=== PATIENT | male | born 1970 | race Caucasian/White ===

== ENCOUNTER 2022-01-16 20:24 | Observation (INO) | payer MEDICAID, SELFPAY ==
--- NOTE | 2022-01-16 20:17 | ECG_ITS ---
APPROVED REPORT Exam: Resting ECG HR:81 bpm ECG Measurements Heart Rate 81 AXES DC 186 P 66 QRSd 85 QRS 64 QT 372 T 54 QTc 409 Conclusion SINUS RHYTHM NORMAL ECG UNCONFIRMED REPORT Electronically signed by : Patrice Izquierdo MD 01/17/2022 21:09:01
[2022-01-16 20:24] VITALS: BP 175/89; PULSE 84; RESP 20; TEMP 36.7; O2SAT 97; BMI 43.5
--- NOTE | 2022-01-16 20:58 | XR_ITS ---
PROCEDURE INFORMATION: Exam: XR Chest Exam date and time: 01/16/2022 8:59 PM Age: 51 years old Clinical indication: Sternal or substernal pain; Additional info: Chest TECHNIQUE: Imaging protocol: Radiologic exam of the chest. Views: 2 views. COMPARISON: No relevant prior studies available. FINDINGS: Lungs: Unremarkable. No consolidation. Pleural spaces: Unremarkable. No pleural effusion. No pneumothorax. Heart/Mediastinum: Unremarkable. No cardiomegaly. Bones/joints: Unremarkable. Organs: Cholecystectomy clips. IMPRESSION: No acute findings.
[2022-01-16 21:03] LABS: Coronavirus 19, PCR Not Detected (NotDetected); Influenza A, PCR Not Detected (NotDetected); Influenza B, PCR Not Detected (NotDetected)
--- NOTE | 2022-01-16 21:12 | HMH.EDCP ---
Discharge Plan Disposition Chief Complaint: Chest Pain Clinical Impressions Clinical Impression: Unstable angina pectoris, Diabetes mellitus, insulin dependent (IDDM), controlled, Obesity Discharge ED Provider: Rishi Alvarado Chest Pain HPI General Chief Complaint: Chest Pain Stated Complaint: chest pain Time Seen by Provider: 01/16/22 21:12 Mode of Arrival: Family Vehicle Source of Information: Patient, Spouse and Medical Record Limitations: No Limitations Description of Symptoms (Recalled from ER Triage Doc. by RN): Pt c/o mid-sternal chest pain that began 3 days ago (01/13). He states he also has pain in bilat jaw. And states when the pain gets shapr is moves inbetween my shoulder blades. . Denies any known injury. He does report SOA and dyspnea occasional since I have had covid 2 years ago . Pt takes daily ASA 81mg, but denies taking any other medicaiton to aid in relief. Pt has had 1 heart cath prev, no stents placed. History of Present Illness HPI narrative: progressive ant chest pain with rad to jaw over the last few days - had cath 3 yrs ago with no stents but had been doing ok till about 1 week ago - has iddm - has been compliant with meds - no other c/o MD complaint: chest pain indicative of cardiac Onset (ago): day(s) Duration: intermittent Activity at onset: during rest Pain location: left chest Severity: moderate Quality: aching Pain radiation: jaw/teeth Risk Factors for CAD: Family Hx of CAD and Diabetes Treatments prior to or on arrival for Cardiac Chest Pain: none WAQAS Score for Non-Stemi Age of Patient: 50-59 years old Heart Rate: 70-89 bpm Systolic Blood Pressure: 120-139 mmhg Serum Creatinine: 0.80-1.19 mg/dl CHF Killip Class: I-No CHF Other Risk Factors: None Non-Stemi Risk Score: 91 Related Data Prior Cardiac Testing/Procedures: Cardiac Angiogram Home Medications Medication Instructions Recorded Confirmed aspirin 81 mg tablet,delayed 81 mg PO DAILY heart health 01/16/22 01/16/22 release citalopram 20 mg tablet 20 mg PO DAILY Depression 01/16/22 01/16/22 ibuprofen 800 mg tablet 800 mg PO BID Pain 01/16/22 01/16/22 insulin lispro 200 unit/mL (3 mL) See Rx Instructions .Route 01/16/22 01/16/22 subcutaneous pen (Humalog KwikPen .COMPLEX via insulin pump U-200 Insulin) lisinopril 20 1 tab PO BID High blood pressure 01/16/22 01/16/22 mg-hydrochlorothiazide 25 mg tablet lorazepam 1 mg tablet 1 mg PO BID Anxiety 01/16/22 01/16/22 omeprazole 40 mg capsule,delayed 40 mg PO DAILY GERD 01/16/22 01/16/22 release tamsulosin 0.4 mg capsule 0.4 mg PO DAILY bph 01/16/22 01/16/22 Allergies Allergy/AdvReac Type Severity Reaction Status Date / Time Calcium Channel Blocking Allergy Verified 01/16/22 20:56 Agents-Dih Penicillins Allergy Verified 01/16/22 20:56 Sulfa (Sulfonamide Allergy Verified 01/16/22 20:56 Antibiotics) PFSH PFS Social History Smoking Status: Never smoker alcohol intake: never current occupational status: employed Travel in the last 8 weeks: None ROS Obtained: Yes All systems reviewed & no additional complaints except as documented Constitutional Constitutional: Denies fever(s) and Denies headache(s) Eyes Eyes: Denies diplopia ENT Ears, Nose, Mouth, and Throat: Denies dizziness and Denies headache(s) Cardiovascular Cardiovascular: Reports as per HPI, Reports chest pain at rest and Reports radiating jaw, neck or arm pain Respiratory Respiratory: Denies shortness of breath Gastrointestinal Gastrointestingal: Denies dyspepsia Musculoskeletal Musculoskeletal: Denies deformity Integumentary/Breasts Skin/Breast: Denies jaundice Neurologic Neurologic: Denies dizziness and Denies headache(s) Physical Exam General General appearance: alert and obese Head Head exam: normocephalic Eye Eye exam: Present PERRL and EOMI ENT ENT exam: Present mucous membranes moist Neck Neck exam: Present full ROM and trachea midline Respiratory Respiratory
[2022-01-16 21:19] LABS: Chloride 96 mmol/L (98-107); Potassium 3.3 mmoL/L (3.5-5.1); Sodium 137 mmol/L (136-145)
[2022-01-16 21:22] LABS: Anion Gap 14.3 mEq/L (5-15); Blood Urea Nitrogen 21 mg/dl (9-20); Carbon Dioxide 30 mmol/L (22.0-30.0); Creatinine Clearance Estimated 105 mL/min (50-200); Estimated Glomerular Filt Rate 89 ml/min (>60); GFR (African American) 107 ML/MIN (>60)
[2022-01-16 21:23] LABS: Calcium 8.6 mg/dl (8.4-10.2); Glucose 182 mg/dl (74-100)
[2022-01-16 21:32] LABS: Basophils # 0.1 K/mm3 (0-0.2); Basophils % 1.2 % (0.1-2.0); Eosinophils # 0.2 K/mm3 (0.0-0.4); Hematocrit 46.2 % (42.0-52.0); Hemoglobin 15.5 g/dL (14.1-18.0); Lymphocytes % 34.9 % (10-50); Mean Corpuscular HGB Conc 33.5 g/dL (31.8-35.4); Mean Corpuscular Hemoglobin 29.9 pg (27.0-31.2); Mean Corpuscular Volume 89.3 fl (80-94); Mean Platelet Volume 8.5 fl (7.4-10.4); Monocytes # 0.7 K/mm3 (0.1-1.0); Monocytes % 7.7 % (1.7-9.3); Neutrophils # 4.6 K/mm3 (1.8-7.8); Neutrophils % 54.2 % (37.0-80.0); Platelet Count 254 K/mm3 (142-424); Red Blood Count 5.18 M/mm3 (4.60-6.20); White Blood Count 8.6 K/mm3 (4.8-10.8)
[2022-01-16 21:36] LABS: NT Pro Brain Natriuretic Pep. 27.2 pg/mL (0-125)
[2022-01-16 21:40] LABS: Troponin I < 0.01 ng/ml (0.00-0.034)
--- NOTE | 2022-01-16 21:58 | PC.NURSE ---
PATIENT ADMITTED TO [facility] [place] TO SERVICE OF DR. BREWER WITH DX OF CHEST PAIN.
[2022-01-16 22:28] VITALS: BMI 42.3
[2022-01-17] VITALS (21 sets, daily range): BP systolic 121–160; BP diastolic 67–88; PULSE 68–93; RESP 16–20; TEMP 36.6–37.1; O2SAT 91–99
--- NOTE | 2022-01-17 | IR_ITS ---
APPROVED REPORT Patient Location: Inpatient Frame Nailer: TONY Thompson RT (R) PROCEDURES Left heart catheterization Left ventriculogram Selective coronary angiogram INDICATION Unstable angina, Numerous risk factors for coronary disease Informed consent was obtained prior to the procedure. COMPLICATIONS None Estimated Blood Loss: Less than 10 mls TECHNIQUE One percent lidocaine used to anesthetize the right anterior aspect of the wrist. The right radial artery was accessed via the Seldinger technique. A 6 [place] sheath was placed in the right radial artery. 2.5 mg of verapamil, 800 mcg of nitroglycerin, 1mg Lidocaine and 5000 U Heparin were given through the arterial sheath. The papa catheter was also used to perform left heart catheterization, left ventriculogram and selective coronary angiogram. At the end of the procedure the sheath was removed good hemostasis was achieved using Traclet band, patient was transferred to the postop holding area in stable condition. ANGIOGRAPHIC RESULTS The left main artery Normal The left anterior descending artery Normal The circumflex artery Normal The right coronary artery Dominant normal The SANDOVAL ventriculogram reveals Preserved 60% The left ventricular end-diastolic pressure 10 to 15 mmHg IMPRESSION Normal coronary arteries Preserved ejection fraction Borderline normal LVEDP Resting tachycardia PLAN 1. Recommend CT PA gram to evaluate for possible pulmonary embolism 2. Check thyroid panel 3. Sleep study 4. Work-up tachycardia Electronically signed by : Jonathan Palafox MD 01/17/2022 12:55:09
--- NOTE | 2022-01-17 00:27 | PC.NURSE ---
PT ARRIVED TO FLOOR VIA WHEELCHAIR AT THIS TIME
--- NOTE | 2022-01-17 01:23 | PC.NURSE ---
Assumed care of this patient at this time. Report received from Remington Christopher RN
--- NOTE | 2022-01-17 05:04 | PC.NURSE ---
Patient has slept most of the shift since this RN assumed care. No c/o chest pain a this time. Remains NSR on telemetry. Pt independent. No needs voiced at this time. No acute distress noted, will continue to monitor.
--- NOTE | 2022-01-17 07:14 | EXP.PHA.VTE ---
[facility] Pharmacy VTE Monitoring Patient Demographics Admission date: 01/17/22 Report Date: 01/17/22 Time: 07:15 Patient Allergies Calcium Channel Blocking Agents-Dih Allergy (Verified 01/16/22 20:56) Penicillins Allergy (Verified 01/16/22 20:56) Sulfa (Sulfonamide Antibiotics) Allergy (Verified 01/16/22 20:56) Height: 1.83 m Weight: 141.776 kg Current Active Problems (Updated 01/17/22 @ 00:36 by Michell Christopher RN) Unstable angina pectoris (Acute) Diabetes mellitus, insulin dependent (IDDM), controlled (Acute) Obesity (Acute) VTE Risk Labs: VTE Related Lab Results Hgb 15.5 g/dL (14.1-18.0) 01/16/22 20:25 Hct 46.2 % (42.0-52.0) 01/16/22 20:25 Plt Count 254 K/mm3 (142-424) 01/16/22 20:25 BUN 21 mg/dl (9-20) H 01/16/22 20:25 Creatinine 0.90 mg/dl (0.66-1.25) 01/16/22 20:25 Estimated Creat Clear 105 mL/min (50-200) 01/16/22 20:25 Clinical Trial Participant: No Prophylaxis VTE Prophylaxis Ordered?: Yes Types of VTE Prophylaxis: TEDS Knee High
--- NOTE | 2022-01-17 07:32 | HMH.PHAINT1 ---
Pharmacy Intervention Comments: VERIFIED HOME MEDICATION LIST USING LIST FROM OUTPATIENT PHARMACY
[2022-01-17 09:09] LABS: Basophils # 0.1 K/mm3 (0-0.2); Basophils % 0.7 % (0.1-2.0); Eosinophils # 0.1 K/mm3 (0.0-0.4); Eosinophils % 1.3 % (0.1-12.0); Hemoglobin 15.1 g/dL (14.1-18.0); Lymphocytes # 1.7 K/mm3 (0.7-4.5); Lymphocytes % 19.6 % (10-50); Mean Corpuscular HGB Conc 33.6 g/dL (31.8-35.4); Mean Corpuscular Hemoglobin 29.8 pg (27.0-31.2); Mean Corpuscular Volume 88.5 fl (80-94); Mean Platelet Volume 7.8 fl (7.4-10.4); Monocytes # 0.5 K/mm3 (0.1-1.0); Monocytes % 5.3 % (1.7-9.3); Neutrophils # 6.3 K/mm3 (1.8-7.8); Neutrophils % 73.1 % (37.0-80.0); Platelet Count 244 K/mm3 (142-424); Red Blood Count 5.08 M/mm3 (4.60-6.20); Red Cell Distribution Width 12.9 % (11.5-17.5); White Blood Count 8.7 K/mm3 (4.8-10.8)
[2022-01-17 09:31] LABS: Chloride 99 mmol/L (98-107); Potassium 3.7 mmoL/L (3.5-5.1); Sodium 138 mmol/L (136-145)
[2022-01-17 09:34] LABS: Anion Gap 14.7 mEq/L (5-15); Blood Urea Nitrogen 17 mg/dl (9-20); Calcium 8.5 mg/dl (8.4-10.2); Carbon Dioxide 28 mmol/L (22.0-30.0); Cholesterol 161 mg/dl (140-200); Creatinine Clearance Estimated 119 mL/min (50-200); Estimated Glomerular Filt Rate 102 ml/min (>60); GFR (African American) 123 ML/MIN (>60); Glucose 104 mg/dl (74-100); Triglycerides 116 mg/dl (30-150); VLDL Cholesterol 23 mg/dL (0-40)
[2022-01-17 09:35] LABS: Chol/HDL Ratio 5.4 (1-3.5); HDL Cholesterol 30 mg/dl (40-60); Magnesium 1.8 mg/dl (1.6-2.3)
--- NOTE | 2022-01-17 09:35 | EXP.HP ---
History of Present Illness *Admission Date: 01/17/22 *Reason for visit:: Chest Pain *History of present illness: 51-year-old male patient into [facility] emergency department with progressive ant chest pain with rad to jaw over the last few days - had cath 3 yrs ago with no stents but had been doing ok till about 1 week ago - has iddm - has been compliant with meds - no other c/o PFSH PFSH Medical History (Updated 01/17/22 @ 10:07 by Dinorah Conn APRN) Diabetes mellitus, type 2 History of chest pain History of COVID-19 Hyperlipidemia Hypertension Sleep apnea Surgical History (Updated 01/17/22 @ 00:37 by Michell Christopher RN) History of cholecystectomy Family History (Updated 01/17/22 @ 00:37 by Michell Christopher RN) Other Colon cancer Family history of cancer Social History (Updated 01/17/22 @ 00:35 by Michell Christopher RN) Smoking Status: Never smoker alcohol intake: never current occupational status: employed Travel in the last 8 weeks: None Review of Systems Constitutional Constitutional: Reports system reviewed and no additional complaints, except as documented, Denies body ache(s) and Denies headache(s) Eyes Eyes: Reports system reviewed and no additional complaints, except as documented, Denies blurry vision and Denies loss of peripheral vision ENT Ears, Nose, Mouth, and Throat: Reports system reviewed and no additional complaints, except as documented, Denies dizziness, Denies headache(s) and Denies throat swelling *Cardiovascular Cardiovascular: Reports chest pain, Reports chest pain at rest, Reports chest pain with activity, Reports dyspnea and Reports dyspnea on exertion *Respiratory Respiratory: Reports dyspnea and Reports dyspnea on exertion *Gastrointestinal Gastrointestinal: Reports system reviewed and no additional complaints, except as documented, Denies abdominal pain and Denies change in bowel habits *Genitourinary Genitourinary: Reports system reviewed and no additional complaints, except as documented *Musculoskeletal Musculoskeletal: Reports system reviewed and no additional complaints, except as documented, Denies back pain and Denies joint swelling Integumentary/Breasts Skin/Breast: Reports system reviewed and no additional complaints, except as documented, Denies change in pigmentation and Denies dry skin *Neurologic Neurologic: Reports system reviewed and no additional complaints, except as documented, Denies behavioral changes, Denies dizziness and Denies headache(s) Psychiatric Psychiatric: Reports system reviewed and no additional complaints, except as documented, Denies anxiety and Denies behavioral changes Endocrine Endocrine: Reports system reviewed and no additional complaints, except as documented, Denies cold intolerance and Denies heat intolerance Hematologic/Lymphatic Hematologic/Lymphatic: Reports system reviewed and no additional complaints, except as documented, Denies easy bleeding and Denies easy bruising Allergic/Immunologic Allergic/Immunologic: Reports system reviewed and no additional complaints, except as documented, Denies GI upset with certain foods and Denies throat swelling Meds Home Medications and Allergies Home Medications Medication Instructions Recorded Confirmed Type aspirin 81 mg tablet,delayed 81 mg PO DAILY heart health 01/16/22 01/16/22 History release citalopram 20 mg tablet 20 mg PO DAILY Depression 01/16/22 01/16/22 History ibuprofen 800 mg tablet 800 mg PO BID Pain 01/16/22 01/16/22 History insulin lispro 200 unit/mL (3 mL) See Rx Instructions .Route 01/16/22 01/16/22 History subcutaneous pen (Humalog KwikPen .COMPLEX via insulin pump U-200 Insulin) lisinopril 20 1 tab PO BID High blood pressure 01/16/22 01/17/22 History mg-hydrochlorothiazide 25 mg tablet lorazepam 1 mg tablet 1 mg PO TIDP PRN Anxiety 01/16/22 01/17/22 History omeprazole 40 mg capsule,delayed 40 mg PO DAILY acid reflux 01/16/2212/29
[2022-01-17 09:46] LABS: Direct LDL Cholesterol 90.53 mg/dL (100-129)
--- NOTE | 2022-01-17 09:56 | EXP.CARD.CON ---
History of Present Illness History of Present Illness Consult date: 01/17/22 Requesting physician: Rishi Alvarado Consult reason: chest pain Chief complaint: chest pain Additional Medical History:: Past medical hx: Clean heart cath [address] Melendez per patient IDDM obesity HTN HLD History of present illness: 51 year old white male with above past medical hx presents to ED last night with complaint of ongoing episodes of midsternal chest pain, radiating to jaw and back during exertion x 3-4 days. Patient reports symptoms start with activity and usually resolve with rest. Reports associated soa with episodes. Initial trop was negative. EKG nsr no ischemic changes. BP initially elevated at 175/85. Patient is concerned because of family hx and wants a heart cath. admitted for observation and cardiac evaluation. [facility] Medical History (Updated 01/17/22 @ 10:07 by Dinorah Conn APRN) Diabetes mellitus, type 2 History of chest pain History of COVID-19 Hyperlipidemia Hypertension Sleep apnea Surgical History (Updated 01/17/22 @ 00:37 by Michell Christopher RN) History of cholecystectomy Family History (Updated 01/17/22 @ 00:37 by Michell Christopher RN) Other Colon cancer Family history of cancer Social History (Updated 01/17/22 @ 00:35 by Michell Christopher RN) Smoking Status: Never smoker alcohol intake: never current occupational status: employed Travel in the last 8 weeks: None Review of Systems Review of Systems Review of systems:: pertinent systems reviewed and negative unless documented below Constitutional Constitutional: Denies headache(s) ENT Ears, Nose, Mouth, and Throat: Denies dizziness and Denies headache(s) *Cardiovascular Cardiovascular: Reports chest pain and Reports dyspnea *Respiratory Respiratory: Reports dyspnea *Gastrointestinal Gastrointestinal: Reports system reviewed and no additional complaints, except as documented *Neurologic Neurologic: Denies confusion, Denies dizziness and Denies headache(s) Psychiatric Psychiatric: Reports system reviewed and no additional complaints, except as documented and Denies confusion Exam Data for Last 24 hours Vital signs and Labs for Last 24 Hours: Temp Pulse Resp BP Pulse Ox 98.2 F 81 16 150/84 H 96 01/17/22 08:00 01/17/22 08:00 01/17/22 08:00 01/17/22 08:00 01/17/22 08:00 Laboratory Results - last 24 hr 01/16/22 20:25: WBC 8.6, RBC 5.18, Hgb 15.5, Hct 46.2, MCV 89.3, MCH 29.9, MCHC 33.5, RDW 13.0, Plt Count 254, MPV 8.5, Neut % (Auto) 54.2, Lymph % (Auto) 34.9, [place] % (Auto) 7.7, Eos % (Auto) 2.0, Baso % (Auto) 1.2, Neut # (Auto) 4.6, Lymph # (Auto) 3.0, [place] # (Auto) 0.7, Eos # (Auto) 0.2, Baso # (Auto) 0.1 01/16/22 20:25: Sodium 137, Potassium 3.3 L, Chloride 96 L, Carbon Dioxide 30, Anion Gap 14.3, BUN 21 H, Creatinine 0.90, Estimated Creat Clear 105, Estimated GFR 89, Est GFR ( Amer) 107, Glucose 182 H, Calcium 8.6, Troponin I < 0.01, NT-Pro-B Natriuret Pep 27.2 01/16/22 20:25: SARS-CoV-2 (PCR) Not detected, Influenza A Untype (PCR) Not detected, Influenza Type B (PCR) Not detected 01/17/22 08:52: WBC 8.7, RBC 5.08, Hgb 15.1, Hct 45.0, MCV 88.5, MCH 29.8, MCHC 33.6, RDW 12.9, Plt Count 244, MPV 7.8, Neut % (Auto) 73.1, Lymph % (Auto) 19.6, [place] % (Auto) 5.3, Eos % (Auto) 1.3, Baso % (Auto) 0.7, Neut # (Auto) 6.3, Lymph # (Auto) 1.7, [place] # (Auto) 0.5, Eos # (Auto) 0.1, Baso # (Auto) 0.1 01/17/22 08:52: Sodium 138, Potassium 3.7, Chloride 99, Carbon Dioxide 28, Anion Gap 14.7, BUN 17, Creatinine 0.80, Estimated Creat Clear 119, Estimated GFR 102, Est GFR ( Amer) 123, Glucose 104 H D, Calcium 8.5, Magnesium 1.8, Triglycerides 116, Cholesterol 161, LDL Cholesterol Direct 90.53 L, VLDL Cholesterol 23, HDL Cholesterol 30 L, Cholesterol/HDL Ratio 5.4 H I & O for Last 24 hours: Intake & Output 01/14/22 01/15/22 01/16/22 01/17/22 23:59 23:59 23:59 23:59 Intake Total 604 / 604 Output Tot
[2022-01-17 11:12] LABS: POC Glucose,Bedside 127 (70-110)
--- NOTE | 2022-01-17 13:12 | PC.NURSE ---
ROUNDED ON PATIENT. PATIENT UP SITTING ON SIDE OF BED, HAD BEEN WALKING IN ROOM INDEPENDENTLY WITHOUT DIFFICULTY NO COMPLAINTS AT THIS TIME BESIDES BEING HUNGRY. PATIENT IS NPO AND WAITING FOR HEART CATH, RELAYED WE WOULD GET HIM FOOD ON RETURN TO FLOOR. NO SPECIFIC QUESTIONS OR CONCERNS. SOME EDUCATION DONE ON WHAT TO EXPECT BEFORE AND AFTER. DIRECT MAIL MANAGER ENTERED ROOM DURING THIS TIME TO TAKE PATIENT DOWNSTAIRS. FAMILY LEFT WITH THEM.
--- NOTE | 2022-01-17 13:30 | CT_ITS ---
FINAL REPORT TECHNIQUE: Thin section axial CT images were obtained from the lung apices to the upper abdomen. IV contrast was administered. MIP 3-D reformats were obtained. This study was performed with techniques to keep radiation doses as low as reasonably achievable (ALARA). Individualized dose reduction techniques using automated exposure control or adjustment of mA and/or kV according to the patient's size were employed. CLINICAL HISTORY: verbal order given per Dr. Palafox to r/o PE, post heart-cath FINDINGS: The heart size is normal. There are a few small scattered mediastinal lymph nodes. There is suboptimal opacification of the mediastinal vasculature. There is no filling defect to suggest PE. There is no aortic dissection. There is no pericardial effusion. There is no suspicious infiltrate or nodule. No pleural effusion. Limited images of the upper abdomen demonstrate the gallbladder to be surgically absent. There is a nodular peripheral margin of the liver concerning for early cirrhosis. There is a 2.2 cm benign-appearing cyst in the right kidney. IMPRESSION: No pulmonary embolism or aortic dissection. Reviewed, Interpreted and Dictated by Wade Dennis MD Transcribed by Nas Lucero Authenticated and [facility]
--- NOTE | 2022-01-17 13:41 | SUR.PHASEII ---
pt going to ct scan at this time and then back to room 201. pt awake, alert and oriented at this time. and patient updated on POC.
[2022-01-17 16:49] LABS: POC Glucose,Bedside 134 (70-110)
--- NOTE | 2022-01-17 18:17 | PC.NURSE ---
PT IS RESTING IN BED WITH FAMILY AT BEDSIDE. ALERT AND ORIENTED X4. EATING AND DRINKING WELL. DRESSING TO THE RIGHT CATH SITE C/D/I. CATH VSS. LUNG SOUNDS CLEAR. ABDOMEN SOFT/OBESE/NON TENDER WITH ACTIVE BOWEL SOUNDS. AMBULATES TO THE BATHROOM AND AROUND THE ROOM. WILL CONTINUE TO MONITOR.
--- NOTE | 2022-01-17 20:00 | CA_ITS ---
APPROVED REPORT EXAM: Comprehensive 2D, Doppler, and color-flow Echocardiogram Professional Architect: JOE Luis, RVS Ht: 6 ft 0 in Wt: 321lbs BSA: 2.61 BP: 175/89 mmHg Indications: CP x 3days with jaw pain, HTN, DM, HTN, HLD, Obesity Echo Enhancing Agent Comments: Technically difficult due to acoustic impedence with large chest circumference. 2D Dimensions LVOT 2.20 cm (M/F) 1.5-2.5 LA Volume 52.80 mL LA Volume Index 20.958080 mL/m2 (M/F) 16-34 M-Mode Dimensions RVDd 2.93 cm (0.9-2.6) LA Diam 4.30 cm (1.9-4.0) LVDd 4.65 cm (3.5-5.7) Ao Diam 3.61 cm (2.0-3.7) LVDs 3.39 cm (3.5-5.7) IVSd 1.33 cm (0.6-1.1) PWd 1.07 cm (0.6-1.1) EF (Teich) 52.80% EPSs 0.23 cm FS 27.10% EDV (Teich) 99.80 mL TAPSE 2.27 (<1.7) ESV (Teich) 47.10 mL LV Diastology E Decel Time 293.00 (160-240 msec) E/A Ratio 0.79 MED E' 8.10 (< 7 cm/sec) MED A' 12.20 cm/s E'/MED E' Ratio 7.94 (>14) LAT E' 8.60 (<10 cm/sec) LAT A' 11.10 cm/s E/LAT E' Ratio 7.48 (>14) Aortic Valve LVOT Max 90.00 (70-110 cm/s) LVOT VTI 18.74 cm AoV Peak Dariel. 123.00 (50-130 cm/s) AO Peak GR. 6.10 mmHg AO Mean GR. 3.00 (<5 mmHg) AO VTI 23.09 (18-25 cm) VÍCTOR (VTI) 3.09 (2.5-4.5 cm2) Mitral Valve MV A Velocity 82.00 (40-130 cm/s) E/A Ratio 0.79 MV Decel. Time 293.00 (160-240 ms) MV PHT 80.00 ms Pulmonary Valve PV Peak Velocity 91.00 (50-150 cm/s) Left Ventricle Left atrium is mildly enlarged, left ventricle is normal size, mild concentric left ventricular hypertrophy, estimated ejection fraction 55% with no regional wall motion abnormality, grade 1 diastolic dysfunction seen without tissue Doppler evidence of raise left atrial pressure. Right Ventricle Right atrium and right ventricle are mildly enlarged with normal contractility. Aortic Valve Aortic valve is minimally thickened and fibrosed there is no aortic stenosis or aortic insufficiency. Mitral Valve Mitral valve grossly normal, there is trace mitral regurgitation. Tricuspid Valve Tricuspid valve grossly normal, there is trace tricuspid regurgitation, tricuspid regurgitation jet velocity is inadequate for calculation of the right ventricular systolic pressure. Pulmonic Valve Pulmonic valve is poorly visualized. Great Vessels Aortic root is normal size. Inferior vena cava is normal size with normal inspiratory collapse. Pericardium No significant pericardial effusion noted. Conclusion 1. Mild biatrial enlargement, normal left ventricular size, mild concentric left ventricular hypertrophy, estimated ejection fraction 55% with no regional wall motion abnormality, grade 1 diastolic dysfunction seen without tissue Doppler evidence of raise left atrial pressure. 2. Trace mitral and tricuspid regurgitation. 3. No significant pericardial effusion. 4. Inferior vena cava is normal size normal inspiratory collapse. Electronically signed by : Hardik Comer MD 01/17/2022 18:18:31
[2022-01-17 22:05] LABS: POC Glucose,Bedside 121 (70-110)
[2022-01-18] VITALS: BP 137/74; PULSE 60; PULSE 78; RESP 16; TEMP 36.7; O2SAT 96
[2022-01-18 04:00] VITALS: BP 138/88; PULSE 75; PULSE 77; RESP 18; TEMP 36.6; O2SAT 96
[2022-01-18 05:43] VITALS: BMI 41.3
--- NOTE | 2022-01-18 05:47 | PC.NURSE ---
pt has rested well t/o shift, telemetry has shown NSR, HR 76-78, SBP 133-146, no complaints of SOA or CP
[2022-01-18 06:00] LABS: POC Glucose,Bedside 106 (70-110)
[2022-01-18 06:43] LABS: Basophils # 0.1 K/mm3 (0-0.2); Eosinophils # 0.2 K/mm3 (0.0-0.4); Eosinophils % 2.9 % (0.1-12.0); Hematocrit 46.1 % (42.0-52.0); Hemoglobin 15.5 g/dL (14.1-18.0); Lymphocytes # 2.2 K/mm3 (0.7-4.5); Lymphocytes % 32.1 % (10-50); Mean Corpuscular HGB Conc 33.6 g/dL (31.8-35.4); Mean Corpuscular Hemoglobin 30.2 pg (27.0-31.2); Mean Platelet Volume 8.2 fl (7.4-10.4); Monocytes # 0.4 K/mm3 (0.1-1.0); Monocytes % 5.5 % (1.7-9.3); Neutrophils # 3.9 K/mm3 (1.8-7.8); Neutrophils % 57.5 % (37.0-80.0); Platelet Count 269 K/mm3 (142-424); Red Blood Count 5.13 M/mm3 (4.60-6.20); Red Cell Distribution Width 13.2 % (11.5-17.5); White Blood Count 6.9 K/mm3 (4.8-10.8)
[2022-01-18 06:59] LABS: Anion Gap 12.5 mEq/L (5-15); Blood Urea Nitrogen 16 mg/dl (9-20); Calcium 8.6 mg/dl (8.4-10.2); Carbon Dioxide 29 mmol/L (22.0-30.0); Chloride 98 mmol/L (98-107); Creatinine Clearance Estimated 119 mL/min (50-200); Estimated Glomerular Filt Rate 102 ml/min (>60); GFR (African American) 123 ML/MIN (>60); Glucose 108 mg/dl (74-100); Potassium 3.5 mmoL/L (3.5-5.1); Sodium 136 mmol/L (136-145)
[2022-01-18 08:00] VITALS: BP 159/90; PULSE 76; PULSE 77; RESP 16; TEMP 36.3; O2SAT 96
[2022-01-18 08:01] LABS: T4 (Thyroxine) 10.6 ug/dl (5.53-11.0); Triiodothryronine (T3) Uptake 28 % (23.5-40.5)
[2022-01-18 08:15] LABS: Thyroid Stimulating Hormone 1.52 uIU/mL (0.465-4.68)
--- NOTE | 2022-01-18 09:03 | EXP.CARD.PN ---
Subjective Subjective Date: 01/18/22 Time: 08:00 Principal diagnosis: angina Interval history: S/p C yesterday, see report below. Denies chest pain or soa. cta negative Echo Conclusion 1.? Mild biatrial enlargement, normal left ventricular size, mild concentric left ventricular hypertrophy, estimated ejection fraction 55% with no regional wall motion abnormality, grade 1 diastolic dysfunction seen without tissue Doppler evidence of raise left atrial pressure. 2.? Trace mitral and tricuspid regurgitation. 3.? No significant pericardial effusion. 4.? Inferior vena cava is normal size normal inspiratory collapse. ANGIOGRAPHIC RESULTS The left main artery Normal The left anterior descending artery Normal The circumflex artery Normal The right coronary artery Dominant normal The SANDOVAL ventriculogram reveals Preserved 60% The left ventricular end-diastolic pressure 10 to 15 mmHg IMPRESSION Normal coronary arteries Preserved ejection fraction Borderline normal LVEDP Resting tachycardia PLAN 1. Recommend CT PA gram to evaluate for possible pulmonary embolism 2. Check thyroid panel 3. Sleep study 4. Work-up tachycardia Exam Data for Last 24 hours Vital signs and Labs for Last 24 Hours: Temp Pulse Resp BP Pulse Ox 97.4 F L 76 16 159/90 H 96 01/18/22 08:00 01/18/22 08:00 01/18/22 08:00 01/18/22 08:00 01/18/22 08:00 Laboratory Results - last 24 hr 01/17/22 08:52: WBC 8.7, RBC 5.08, Hgb 15.1, Hct 45.0, MCV 88.5, MCH 29.8, MCHC 33.6, RDW 12.9, Plt Count 244, MPV 7.8, Neut % (Auto) 73.1, Lymph % (Auto) 19.6, [place] % (Auto) 5.3, Eos % (Auto) 1.3, Baso % (Auto) 0.7, Neut # (Auto) 6.3, Lymph # (Auto) 1.7, [place] # (Auto) 0.5, Eos # (Auto) 0.1, Baso # (Auto) 0.1 01/17/22 08:52: Sodium 138, Potassium 3.7, Chloride 99, Carbon Dioxide 28, Anion Gap 14.7, BUN 17, Creatinine 0.80, Estimated Creat Clear 119, Estimated GFR 102, Est GFR ( Amer) 123, Glucose 104 H D, Calcium 8.5, Magnesium 1.8, Triglycerides 116, Cholesterol 161, LDL Cholesterol Direct 90.53 L, VLDL Cholesterol 23, HDL Cholesterol 30 L, Cholesterol/HDL Ratio 5.4 H 01/17/22 10:56: POC Glucose 127 H 01/17/22 16:08: POC Glucose 134 H 01/17/22 21:37: POC Glucose 121 H 01/18/22 05:30: POC Glucose 106 01/18/22 06:28: WBC 6.9, RBC 5.13, Hgb 15.5, Hct 46.1, MCV 90.0, MCH 30.2, MCHC 33.6, RDW 13.2, Plt Count 269, MPV 8.2, Neut % (Auto) 57.5, Lymph % (Auto) 32.1, [place] % (Auto) 5.5, Eos % (Auto) 2.9, Baso % (Auto) 2.0, Neut # (Auto) 3.9, Lymph # (Auto) 2.2, [place] # (Auto) 0.4, Eos # (Auto) 0.2, Baso # (Auto) 0.1 01/18/22 06:28: Sodium 136, Potassium 3.5, Chloride 98, Carbon Dioxide 29, Anion Gap 12.5, BUN 16, Creatinine 0.80, Estimated Creat Clear 119, Estimated GFR 102, Est GFR ( Amer) 123, Glucose 108 H, Calcium 8.6 01/18/22 06:28: TSH 1.52, Free T4 Index 3.0 L, Thyroxine (T4) 10.6, T3 Uptake 28 I & O for Last 24 hours: Intake & Output 01/15/22 01/16/22 01/17/22 01/18/22 23:59 23:59 23:59 23:59 Intake Total 964 / 964 720 / 720 Output Total 0 / 0 0 / 0 Balance 964 / 964 720 / 720 Weight 312 lb 9 oz 312 lb 9 oz 305 lb 7 oz Progress Note: A&P Assessment and plan (1) HLD (hyperlipidemia): Status: Acute (2) HTN (hypertension): Status: Acute (3) Unstable angina pectoris: Status: Acute (4) Diabetes mellitus, insulin dependent (IDDM), controlled: Status: Acute (5) Obesity: Status: Acute Assessment and Plan Assessment and Plan for All Diagnoses:: Stable angina CCS 3 -Trops negative -EKG negative -Persistent symptoms with activity over the course of 3-4 days. Offered outpatiet stress testing vs. LCH today, patient wants to proceed with C due to family hx and concern. Discussed risks vs. benefits with patient and family, they are agreeable. 01/18- s/p LHC normal cors noted. See note above HTN -remains elevated 150/90 -increase diovan HCT to 325/25 HLD -Start Crestor 40mg QD IDDM -Insulin
--- NOTE | 2022-01-18 09:34 | EXP.DC.SUM ---
General Admission date:: 01/17/22 Discharge date: 01/18/22 HPI HPI HPI: 51-year-old male patient into [facility] emergency department with progressive ant chest pain with rad to jaw over the last few days - had cath 3 yrs ago with no stents but had been doing ok till about 1 week ago - has iddm - has been compliant with meds - no other c/o Hospital Course Hospital Course Hospital Course: 01/17/22 Chest CTA: FINDINGS: The heart size is normal.? There are a few small scattered mediastinal lymph nodes.? There is suboptimal opacification of the mediastinal vasculature.? There is no filling defect to suggest PE. There is no aortic dissection. There is no pericardial effusion. There is no suspicious infiltrate or nodule. No pleural effusion. Limited images of the upper abdomen demonstrate the gallbladder to be surgically absent.? There is a nodular peripheral margin of the liver concerning for early cirrhosis.? There is a 2.2 cm benign-appearing cyst in the right kidney. IMPRESSION: No pulmonary embolism or aortic dissection. Reviewed, Interpreted and Dictated by Wade Dennis MD Echo Conclusion 1.? Mild biatrial enlargement, normal left ventricular size, mild concentric left ventricular hypertrophy, estimated ejection fraction 55% with no regional wall motion abnormality, grade 1 diastolic dysfunction seen without tissue Doppler evidence of raise left atrial pressure. 2.? Trace mitral and tricuspid regurgitation. 3.? No significant pericardial effusion. 4.? Inferior vena cava is normal size normal inspiratory collapse. 01/17/22 cardiac catheterization: ANGIOGRAPHIC RESULTS The left main artery Normal The left anterior descending artery Normal The circumflex artery Normal The right coronary artery Dominant normal The SANDOVAL ventriculogram reveals Preserved 60% The left ventricular end-diastolic pressure 10 to 15 mmHg IMPRESSION Normal coronary arteries Preserved ejection fraction Borderline normal LVEDP Resting tachycardia PLAN 1. Recommend CT PA gram to evaluate for possible pulmonary embolism 2. Check thyroid panel 3. Sleep study 4. Work-up tachycardia Cardiology has seen and recommends: Assessment and Plan for All Diagnoses:: Stable angina CCS 3 -Trops negative -EKG negative -Persistent symptoms with activity over the course of 3-4 days. Offered outpatiet stress testing vs. LCH today, patient wants to proceed with LHC due to family hx and concern. Discussed risks vs. benefits with patient and family, they are agreeable. 01/18- s/p LHC normal cors noted. See note above HTN -remains elevated 150/90 -increase diovan HCT to 325/25 HLD -Start Crestor 40mg QD IDDM -Insulin and management per primary service. CV stable for dc home. Follow up in office in 2 weeks. Cardiac meds Crestor 40mg QD Diovan 325/25mg QD 51-year-old male patient admitted to [facility] for ongoing episodes of midsternal chest pain radiating to left jaw and back during exertion for 3 to 4 days. He reports he does become short of breath and diaphoretic with these episodes. Cardiology has seen and performed catheterization revealing normal coronaries. Chest CTA negative for pulmonary emboli and cardiology has optimized medications. Patient will follow-up with primary care and cardiology in 2 weeks. Discussed discharge to home, patient is in agreement with this Exam Data for Last 24 hours Vital signs and Labs for Last 24 Hours: Temp Pulse Resp BP Pulse Ox 97.4 F L 76 16 159/90 H 96 01/18/22 08:00 01/18/22 08:00 01/18/22 08:00 01/18/22 08:00 01/18/22 08:00 Laboratory Results - last 24 hr 01/17/22 08:52: Sodium 138, Potassium 3.7, Chloride 99, Carbon Dioxide 28, Anion Gap 14.7, BUN 17, Creatinine 0.80, Estimated Creat Clear 119, Estimated GFR 102, Est GFR ( Amer) 123, Glucose 104 H D, Calcium 8.5, Magnesium 1.8, Triglycerides 116, Cholesterol 161, LDL Ch
[2022-01-18 12:00] VITALS: BP 132/74; PULSE 72; RESP 14; TEMP 36.8; O2SAT 97
== END 2022-01-18 13:15 | disposition home or self-care (01) ==
LOC: ER 20:48 → 2ND 22:29
PROVIDERS: Internal Medicine; Nurse Practitioner Family; Admitting Provider Emergency Medicine; Emergency Provider Emergency Medicine; PCP Nurse Practitioner Family; Visit Provider Emergency Medicine
DX: I25.118 Atherosclerotic heart disease of native coronary artery with other forms of angina pectoris (principal); E11.9 Type 2 diabetes mellitus without complications; Z86.16 Personal history of COVID-19; I10 Essential (primary) hypertension; Z79.4 Long term (current) use of insulin; Z79.899 Other long term (current) drug therapy; Z88.8 Allergy status to other drugs, medicaments and biological substances; E78.5 Hyperlipidemia, unspecified
CPT/HCPCS: 36415; 71046; 71275; 80048; 80061; 82962; 83735; 83880; 84436; 84443; 84479; 84484; 85025; 93005; 93306; 93458; 99152; 99285; C1725; C1760; C1769; C9803; G0378; J1644; Q9967; U0003; U0005

== ENCOUNTER → 2022-02-01 10:53 | Outpatient (CLI) | payer MEDICAID, SELFPAY ==
[2022-02-01 12:35] LABS: Chloride 99 mmol/L (98-107); Potassium 4.5 mmoL/L (3.5-5.1); Sodium 138 mmol/L (136-145)
[2022-02-01 12:38] LABS: Blood Urea Nitrogen 16 mg/dl (9-20); Estimated Glomerular Filt Rate 102 ml/min (>60); GFR (African American) 123 ML/MIN (>60)
[2022-02-01 12:39] LABS: Anion Gap 15.5 mEq/L (5-15); Calcium 8.5 mg/dl (8.4-10.2); Carbon Dioxide 28 mmol/L (22.0-30.0); Glucose 170 mg/dl (74-100)
== END ==
PROVIDERS: PCP Nurse Practitioner Family; Visit Provider Physician Assistant
DX: I10 Essential (primary) hypertension (principal); E78.5 Hyperlipidemia, unspecified; E66.9 Obesity, unspecified; Z68.41 Body mass index [BMI] 40.0-44.9, adult
CPT/HCPCS: 36415; 80048

== ENCOUNTER 2023-07-14 13:55 | Emergency (ER) | payer MEDICAID, SELFPAY ==
[2023-07-14] VITALS (8 sets, daily range): BP systolic 152–198; BP diastolic 91–119; PULSE 61–95; RESP 16–19; TEMP 36.6–36.7; O2SAT 93–98; BMI 39.6
--- NOTE | 2023-07-14 14:03 | ECG_ITS ---
APPROVED REPORT Exam: Resting ECG HR:78 bpm ECG Measurements Heart Rate 78 AXES OR 176 P 44 QRSd 84 QRS 34 QT 364 T 29 QTc 398 Conclusion SINUS RHYTHM WITH OCCASIONAL VENTRICULAR PREMATURE COMPLEXES LOW QRS VOLTAGE IN PRECORDIAL LEADS [QRS DEFLECTION < 1.0 mV IN CHEST LEADS] BORDERLINE ECG Electronically signed by : YAMILKA WAGGONER, 07/14/2023 17:20:38
--- NOTE | 2023-07-14 14:06 | ED_ITS ---
Discharge Plan Disposition Patient Disposition: Home, Self-Care Condition: Good Prescriptions Prescriptions: No Action carvedilol 6.25 mg tablet 6.25 mg PO BID Qty: 180 3RF Rx Instructions: must administer with a meal/food rosuvastatin [Crestor] 40 mg tablet 40 mg PO DAILY Qty: 90 3RF valsartan-hydrochlorothiazide [Diovan HCT] 320-25 mg tablet 1 tab PO DAILY Qty: 90 3RF ibuprofen 800 mg tablet 800 mg PO BID Patient Comments: TAKE ONE (1) TABLET(S) TWICE A DAY BY ORAL ROUTE. omeprazole 40 mg capsule,delayed release(DR/EC) 40 mg PO DAILY Patient Comments: TAKE ONE (1) CAPSULE BY MOUTH EVERY DAY aspirin 81 mg tablet,delayed release (DR/EC) 81 mg PO DAILY Patient Comments: TAKE ONE (1) TABLET (81 MG) BY ORAL ROUTE ONCE DAILY citalopram 20 mg tablet 20 mg PO DAILY Patient Comments: TAKE ONE (1) TABLET BY MOUTH EVERY DAY tamsulosin 0.4 mg capsule 0.4 mg PO DAILY Patient Comments: TAKE ONE (1) CAPSULE EVERY DAY BY ORAL ROUTE FOR 90 DAYS. lorazepam 1 mg tablet 1 mg PO TIDP PRN (Reason: Anxiety) Patient Comments: TAKE ONE (1) TABLET BY MOUTH THREE (3) TIMES DAILY Humalog KwikPen Insulin 200 unit/mL (3 mL) insulin pen See Rx Instructions .ROUTE .COMPLEX Patient Comments: MAX 100 UNITS DAILY VIA PUMP Rx Instructions: pt to dispense per MD via insulin pump Referrals Follow up/Referrals: Provider,Referral, MD [Primary Care Provider] - See instructions Activity Restrictions/Add. Instructions Additional Instructions/Restrictions: Your workup is showing frequent premature ventricular contractions. Please follow-up with your chemical sales representative. Please return with any new or worsening symptoms. Clinical Impressions Clinical Impression: Frequent PVCs Instructions Patient Instructions: Premature Ventricular Beats Discharge ED Provider: Obey Yee General Adult HPI General Chief complaint: Arrhythmia/Palpitations Stated complaint: heart out of rhythm Time Seen by Provider: 07/14/23 14:06 History of Present Illness HPI narrative: Patient presents with approximately 24 hours of intermittent palpitations that he has had for a total of 30 years however less frequent. He denies any known exacerbating or alleviating factors. He denies any pain. He denies any presyncope or syncope. He feels a flip-flopping sensation in his chest. No changes in medications or new medications. He did recently have bariatric surgery however denies any abdominal pain and has been compliant with medications including nutritional supplementation. Symptoms occur every few seconds there were gradual in onset, stable in course. They are consistent with prior symptoms that he has had for 30 years. He is unsure of any specific diagnosis regarding this arrhythmia although he has undergone Holter monitoring past Please note that above description of symptoms, in this electronic medical record under categorization of recalled from ER triage doctor by RN are reflective of an initial nursing assessment, however, is not reflective of my full history and physical exam that was personally taken and clarified. Consequentially, this preceding description of symptoms, which may include the patient's categorized chief complaint in the EMR, do not reflect my personal clinical impression, and the ultimate description of history of present illness and patient stated complaints should be deferred to this section of the note. Unless stated otherwise or congruent with this section of the note, additional signs, symptoms, or incongruence should be interpreted as inaccurate with my clinical impression. Related Data Home Medications Medication Instructions Recorded Confirmed aspirin 81 mg tablet,delayed 81 mg PO DAILY heart health 01/16/22 02/01/22 release citalopram 20 mg tablet 20 mg PO DAILY Depression 01/16/22 02/01/22 ibuprofen 800 mg tablet 800 mg PO BID Pain 01/16/22 02/01/22 insulin lispro 200 unit/mL (3 mL) See Rx Instructions .Route 01/16/22 02/01/22 subcutaneous pen (Humalog KwikPen .COMPLEX via insulin pump U-200 Insulin) lorazepam 1 mg tablet 1 mg PO TIDP PRN Anxiety 01/16/22 02/01/22 omeprazole 40 mg capsule,delayed 40 mg PO DAILY acid reflux 01/16/22 02/01/22 release tamsulosin 0.4 mg capsule 0.4 mg PO DAILY prostate 01/16/22 02/01/22 Previous Rx's Medication Instructions Recorded carvedilol 6.25 mg tablet 6.25 mg PO BID #180 tabs 02/01/22 rosuvastatin 40 mg tablet (Crestor) 40 mg PO DAILY #90 tabs 02/01/22 valsartan 320 1 tab PO DAILY #90 tabs 02/01/22 mg-hydrochlorothiazide 25 mg tablet (Diovan HCT) Allergies Allergy/AdvReac Type Severity Reaction Status Date / Time Calcium Channel Blocking Allergy Verified 02/01/22 10:27 Agents-Dih Penicillins Allergy Verified 02/01/22 10:27 Sulfa (Sulfonamide Allergy Verified 02/01/22 10:27 Antibiotics) [facility] Disclaimer: The information contained in this section may have been updated after the patient was seen, as this information can be updated by other users. Medical History (Updated 07/14/23 @ 16:25 by Obey Yee MD) Diastolic dysfunction Stable angina Diabetes mellitus, type 2 History of COVID-19 Sleep apnea Hyperlipidemia Hypertension History of chest pain Surgical History History of cholecystectomy Family History Other Colon cancer Family history of cancer Social History Smoking Status: Never smoker alcohol intake: never current occupational status: employed Travel in the last 8 weeks: None ROS Obtained: Yes Systems reviewed as appropriate & no additional complaints except as documented As per HPI Physical Exam General General appearance: alert and in no apparent distress Head Head exam: atraumatic and normocephalic Eye Eye exam: Present normal appearance Neck Neck exam: Present normal inspection Chest Chest inspection: Present normal inspection and symmetric chest wall rise Respiratory Respiratory exam: Present normal lung sounds bilaterally; Absent respiratory distress Cardiovascular Cardiovascular exam: Present regular rate, normal rhythm and other (PVCs noted on monitor, patient notes that these are when he experienced symptoms) Abdominal Exam Abdominal exam: Present soft Neurological Exam Neurological exam: Present alert and oriented X3 Psychiatric Psychiatric exam: Present normal affect and normal mood Skin Skin exam: Present warm and dry Medical Decision Making Medical Records Medical records reviewed: Yes I reviewed the patient's medical records. Edis Inquiry Pt receiving controlled substance: No Vital Signs: 07/14/23 13:58 07/14/23 14:31 07/14/23 14:39 Temperature 98.0 F Temperature Source Oral Pulse Rate 78 68 Pulse Rate [Radial] 95 H Respiratory Rate 18 18 18 Blood Pressure 176/113 H 174/98 H Blood Pressure [Right Arm] 198/119 H Blood Pressure Mean 150 144 Blood Pressure Mean [Right Arm] 145 Blood Pressure Source [Right Arm] Automatic Cuff Blood Pressure Position [Right Arm] Sitting 02 Sat by Pulse Oximetry 97 98 98 Oxygen Delivery Method Room Air 07/14/23 14:55 07/14/23 15:00 07/14/23 15:30 Temperature Temperature Source Pulse Rate 70 63 61 Pulse Rate [Radial] Respiratory Rate 16 18 16 Blood Pressure 186/102 H 156/98 H 167/93 H Blood Pressure [Right Arm] Blood Pressure Mean 117 Blood Pressure Mean [Right Arm] Blood Pressure Source [Right Arm] Blood Pressure Position [Right Arm] 02 Sat by Pulse Oximetry 93 L 94 L 96 Oxygen Delivery Method 07/14/23 16:08 07/14/23 16:32 Temperature 98 F Temperature Source Pulse Rate 69 68 Pulse Rate [Radial] Respiratory Rate 18 19 Blood Pressure 155/91 H 152/91 H Blood Pressure [Right Arm] Blood Pressure Mean 126 Blood Pressure Mean [Right Arm] Blood Pressure Source [Right Arm] Blood Pressure Position [Right Arm] 02 Sat by Pulse Oximetry 96 Oxygen Delivery Method Room Air Lab Data Lab Results 07/14/23 14:12: WBC 8.7, RBC 5.20, Hgb 15.6, Hct 48.3, MCV 92.9, MCH 30.1, MCHC 32.3, RDW 13.6, Plt Count 226, MPV 8.9, Neut % (Auto) 68.5, Lymph % (Auto) 23.2, [place] % (Auto) 5.3, Eos % (Auto) 2.3, Baso % (Auto) 0.8, Neut # (Auto) 5.9, Lymph # (Auto) 2.0, [place] # (Auto) 0.5, Eos # (Auto) 0.2, Baso # (Auto) 0.1, Sodium 138, Potassium 3.8, Chloride 106, Carbon Dioxide 26, Anion Gap 9.8, BUN 16, Creatinine 0.80, Estimated Creat Clear 198, Estimated GFR 101, Est GFR ( Amer) 122, Glucose 130 H, Calcium 9.4, Phosphorus 2.9, Magnesium 2.1, Total Bilirubin 0.6, AST 35, ALT 32, Alkaline Phosphatase 78, Troponin I < 0.01, N T-Pro-B Natriuret Pep 209 H, Total Protein 6.9, Albumin 4.1, Globulin 2.8, Albumin/Globulin Ratio 1.5, TSH 1.79, Free T4 1.06 07/14/23 14:12 07/14/23 14:12 Orders (Tests/Meds): ORDERS Category Date Time Status XR chest 2V Stat Exams 07/14/23 14:14 Completed BNP [Brain Natriuretic Peptide] Stat Lab 07/14/23 14:12 Completed CBC w/Auto Diff [Complete Blood Count Auto Diff] Stat Lab 07/14/23 14:12 Completed CMP [Comprehensive Metabolic Panel] Stat Lab 07/14/23 14:12 Completed Free T4 (Free Thyroxine) Stat Lab 07/14/23 14:12 Completed MAG [Magnesium] Stat Lab 07/14/23 14:12 Completed PHOS [Phosphorous] Stat Lab 07/14/23 14:12 Completed TSH [Thyroid Stimulating Hormone] Stat Lab 07/14/23 14:12 Completed Troponin I Q3H Lab 07/14/23 14:12 Completed Medical Decision Narrative: Patient with history and exam per above presenting for evaluation of palpitations Diagnoses considered include PVCs, given that these are noted on monitor, patient describes that these are the symptoms he is experiencing, lower index of suspicion for ACS, electrolyte abnormality, CHF exacerbation, infectious precipitant ED workup and treatment included: ORDERS Category Date Time Status XR chest 2V Stat Exams 07/14/23 14:14 Completed BNP [Brain Natriuretic Peptide] Stat Lab 07/14/23 14:12 Completed CBC w/Auto Diff [Complete Blood Count Auto Diff] Stat Lab 07/14/23 14:12 Completed CMP [Comprehensive Metabolic Panel] Stat Lab 07/14/23 14:12 Completed Free T4 (Free Thyroxine) Stat Lab 07/14/23 14:12 Completed MAG [Magnesium] Stat Lab 07/14/23 14:12 Completed PHOS [Phosphorous] Stat Lab 07/14/23 14:12 Completed TSH [Thyroid Stimulating Hormone] Stat Lab 07/14/23 14:12 Completed Troponin I Q3H Lab 07/14/23 14:12 Completed Labs were independently interpreted by me, significant for no acute findings Imaging was independently visualized and interpreted by me, significant for no acute findings. Please refer to radiology report for full details. My clinical impression at this time is most consistent with PVCs I discussed my clinical impression with patient and answered all questions. At this time, the evidence for any other entities in the differential is insufficient to warrant any further testing or ED observation. This was explained to the patient. The patient was advised that persistent or worsening symptoms require further evaluation. I confirmed the patient's understanding of this discussion. Critical Care Critical Care Time Critical Care Time: No
--- NOTE | 2023-07-14 14:14 | XR_ITS ---
PROCEDURE INFORMATION: Exam: XR Chest Exam date and time: 07/14/2023 2:25 PM Age: 53 years old Clinical indication: Pain; Chest pressure; Additional info: Chest pain TECHNIQUE: Imaging protocol: Radiologic exam of the chest. Views: 2 views. COMPARISON: CT ANGIO CHEST PE PROTOCOL 01/17/2022 1:43 PM FINDINGS: Lungs: No consolidation or lung nodules. Pleural spaces: No pleural effusion. No pneumothorax. Heart/Mediastinum: No abnormalities. No cardiomegaly. No pulmonary vascular congestion. Bones/joints: No fractures or bone lesions. IMPRESSION: No acute findings in the chest. No interval change.
[2023-07-14 14:38] LABS: Basophils # 0.1 K/mm3 (0-0.2); Basophils % 0.8 % (0.1-2.0); Eosinophils # 0.2 K/mm3 (0.0-0.4); Eosinophils % 2.3 % (0.1-12.0); Hematocrit 48.3 % (42.0-52.0); Hemoglobin 15.6 g/dL (14.1-18.0); Lymphocytes % 23.2 % (10-50); Mean Corpuscular HGB Conc 32.3 g/dL (31.8-35.4); Mean Corpuscular Hemoglobin 30.1 pg (27.0-31.2); Mean Corpuscular Volume 92.9 fl (80-94); Mean Platelet Volume 8.9 fl (7.4-10.4); Monocytes # 0.5 K/mm3 (0.1-1.0); Monocytes % 5.3 % (1.7-9.3); Neutrophils # 5.9 K/mm3 (1.8-7.8); Neutrophils % 68.5 % (37.0-80.0); Platelet Count 226 K/mm3 (142-424); Red Cell Distribution Width 13.6 % (11.5-17.5); White Blood Count 8.7 K/mm3 (4.8-10.8)
[2023-07-14 15:08] LABS: NT Pro Brain Natriuretic Pep. 209 pg/mL (0-125)
[2023-07-14 15:14] LABS: Troponin I < 0.01 ng/ml (0.00-0.034)
[2023-07-14 15:47] LABS: Chloride 106 mmol/L (98-107)
[2023-07-14 15:48] LABS: Potassium 3.8 mmoL/L (3.5-5.1); Sodium 138 mmol/L (136-145)
[2023-07-14 15:50] LABS: Alanine Aminotransferase 32 U/L (12-78); Alkaline Phosphatase 78 U/L (38-126); Anion Gap 9.8 mEq/L (5-15); Aspartate Amino Transferase 35 U/L (17-59); Bilirubin,Total 0.6 mg/dl (0.2-1.3); Blood Urea Nitrogen 16 mg/dl (9-20); Carbon Dioxide 26 mmol/L (22.0-30.0); Creatinine Clearance Estimated 198 mL/min (50-200); Estimated Glomerular Filt Rate 101 ml/min (>60); GFR (African American) 122 ML/MIN (>60); Phosphorous 2.9 mg/dl (2.5-4.5)
[2023-07-14 15:51] LABS: Albumin Level 4.1 g/dl (3.5-5.0); Albumin/Globulin Ratio 1.5 (1.1-1.8); Calcium 9.4 mg/dl (8.4-10.2); Globulin 2.8 g/dL (1.3-3.2); Glucose 130 mg/dl (74-100); Magnesium 2.1 mg/dl (1.6-2.3); Total Protein,Serum 6.9 g/dl (6.3-8.2)
[2023-07-14 15:55] LABS: Free T4 (Free Thyroxine) 1.06 ng/dl (0.78-2.19)
--- NOTE | 2023-07-14 16:10 | PC.NURSE ---
pt having frequent high bp readings, changed to larger cuff with better results
[2023-07-14 16:21] LABS: Thyroid Stimulating Hormone 1.79 uIU/mL (0.465-4.68)
== END 2023-07-14 16:33 | disposition home or self-care (01) ==
PROVIDERS: Emergency Provider Emergency Medicine
DX: I49.3 Ventricular premature depolarization (principal); I20.9 Angina pectoris, unspecified; E11.9 Type 2 diabetes mellitus without complications; G47.30 Sleep apnea, unspecified; E78.5 Hyperlipidemia, unspecified; I10 Essential (primary) hypertension
CPT/HCPCS: 71046; 80053; 83735; 83880; 84100; 84439; 84443; 84484; 85025; 93005; 99285

== ENCOUNTER 2024-10-27 09:48 | Day surgery (SDC) | payer BC, SELFPAY ==
[2024-10-22 11:01] VITALS: BMI 33.6
[2024-10-27 10:47] VITALS: BP 132/65; PULSE 77; RESP 18; TEMP 36.1; O2SAT 99
[2024-10-27] MEDS: LACTATED RINGERS 1000ML 1,000 ML 50 ML IV (10:55)
--- NOTE | 2024-10-27 11:03 | EXP.ANES.CKL ---
[facility] Disclaimer: The information contained in this section may have been updated after the patient was seen, as this information can be updated by other users. Medical History Diastolic dysfunction Stable angina Diabetes mellitus, type 2 History of COVID-19 Sleep apnea Hyperlipidemia Hypertension History of chest pain Surgical History Hx of cardiac cath H/O gastric sleeve History of cholecystectomy Family History Other Colon cancer Family history of cancer Social History Smoking Status: Never smoker alcohol intake: never substance use type: denies use current occupational status: employed Travel in the last 8 weeks?: None [facility] Anesthesia Checklist Patient Identification Patient Identification: Arm Band Structural Data Admitted From: Home Planned Operative Procedure/s: Colonoscopy Consent for Planned Operative Procedure(s) Verified: Yes Verified Documents: Surgical Consent and History and Physical NPO Status Verified Time NPO: 00:00 Additional verifications Anesthesia Reactions: No Airway Assessment Mallampati Score:: Class II C-Spine Mobility Assessed: Yes TMJ Mobility Assessed: Yes Dentition: Good Dentition Neurological Assessment Level of Consciousness: Awake, Alert and Appropriate Anesthesia Plan Anesthesia Risk discussed: Yes Anesthesia Plan: Verified ASA Class: II Anesthesia Type: MAC
--- NOTE | 2024-10-27 11:31 | EXP.HP ---
History of Present Illness *Admission Date: 10/27/24 *Reason for visit:: Screening for colon cancer *History of present illness: Mr. Lechuga is a 54-year-old gentleman who is here for screening for colon cancer. The examination is deemed medically necessary for screening colonoscopy. The patient has been seen, interviewed and examined prior to the procedure by both myself and the anesthesia provider. [facility] Disclaimer: The information contained in this section may have been updated after the patient was seen, as this information can be updated by other users. Medical History (Updated 10/27/24 @ 11:44 by Venkatesh Oliver II, MD) Diastolic dysfunction Stable angina Diabetes mellitus, type 2 History of COVID-19 Sleep apnea Hyperlipidemia Hypertension History of chest pain Surgical History Hx of cardiac cath H/O gastric sleeve History of cholecystectomy Family History Other Colon cancer Family history of cancer Social History (Updated 10/27/24 @ 11:04 by Teo Wolfe CRNA) Smoking Status: Never smoker alcohol intake: never substance use type: denies use current occupational status: employed Travel in the last 8 weeks?: None Have you lived/traveled outside [place] in past 30 days?: No Contact w/someone who lives/traveled outside US past 30 days?: No Exposure to someone with infectious disease in past 14 days?: No Do you have a fever (greater than 100.4 F or 38 C)?: No Have you tested positive for COVID-19?: No Exposed to someone with COVID-19 in past 14 days?: No Do you have a sore throat?: No Do you have a cough?: No Do you have any weakness?: No Are you experiencing any nausea/vomitting?: No Do you have any diarrhea?: No Are you experiencing any unusual bleeding?: No Do you have any muscle aches/pain?: No Do you have any abdominal pain?: No Are you experiencing loss of taste or smell?: No Other Medical History Have you received the Flu Vaccine for this season: No Have you received the Pneumonia Vaccine: No Review of Systems Review of Systems Review of systems (narrative): Negative *Cardiovascular Comments: Negative *Gastrointestinal Comments: Negative *Genitourinary Comments: Negative *Musculoskeletal Comments: Negative *Neurologic Comments: Negative Meds Home Medications and Allergies Home Medications ?Medication ?Instructions ?Recorded ?Confirmed ?Type aspirin 81 mg tablet,delayed 81 mg PO DAILY heart health 01/16/22 10/27/24 History release citalopram 20 mg tablet 20 mg PO DAILY Depression 01/16/22 10/27/24 History lorazepam 1 mg tablet 1 mg PO BIDP PRN Anxiety 01/16/22 10/27/24 History omeprazole 40 mg capsule,delayed 40 mg PO DAILY acid reflux 01/16/22 10/27/24 History release tamsulosin 0.4 mg capsule 0.4 mg PO DAILY prostate 01/16/22 10/27/24 History carvedilol 6.25 mg tablet 6.25 mg PO BID #180 tabs 02/01/22 10/27/24 Rx rosuvastatin 40 mg tablet (Crestor) 40 mg PO DAILY #90 tabs 02/01/22 10/27/24 Rx valsartan 320 1 tab PO DAILY #90 tabs 02/01/22 10/27/24 Rx mg-hydrochlorothiazide 25 mg tablet (Diovan HCT) dapagliflozin propanediol 10 mg 10 mg PO DAILY 10/22/24 10/22/24 History tablet (Farxiga) New Prescriptions to Start Prescriptions: Allergies Allergy/AdvReac Type Severity Reaction Status Date / Time Calcium Channel Blocking Allergy irregular Verified 10/27/24 10:44 Agents-Dih heart beat Penicillins Allergy Hives Verified 10/27/24 10:44 Sulfa (Sulfonamide Allergy Vomiting Verified 10/27/24 10:44 Antibiotics) Exam Data for Last 24 hours Vital signs and Labs for Last 24 Hours: Temp Pulse Resp BP Pulse Ox O2 Del Method 97 F L 77 18 132/65 99 Room Air 10/27/24 10:47 10/27/24 10:47 10/27/24 10:47 10/27/24 10:47 10/27/24 10:47 10/27/24 10:47 *Routine HEENT Exam Head: Present normocephalic Eye: Present EOMI and PERRL ENT: Present mucous membranes moist *Routine Neck Exam Neck: Present supple *Routine Respiratory Exam Respiratory: Present CTA bilaterally *Routine Cardiovascular Exam Cardiovascular: Present RRR *Routine Abdominal Exam Abdominal: Present soft and normoactive bowel sounds; Absent tenderness *Routine Rectal Exam Rectal:: deferred *Routine Genitalia Exam Genitalia:: deferred *Routine Extremities Exam Extremities: Absent cyanosis, clubbing or edema *Routine Skin Exam Skin: Present warm; Absent rash *Routine Neurological Exam Neurological: Present alert and oriented X3 Assessment and Plan *Assessment and plan (1) Screening for colon cancer: Status: Acute Category: Medical Code(s): Z12.11 - Encounter for screening for malignant neoplasm of colon Plan A/P: 1. Screening for colon cancer is the preprocedural diagnosis. The patient will be anesthetized/sedated using MAC sedation. The patient has been seen and examined. Cardiac and lung assessment prior to the examination is stable. Proceed with planned screening colonoscopy.
--- NOTE | 2024-10-27 11:45 | P.PCN_ITS ---
[facility] Procedure Note Date: 10/27/24 Time: 12:07 Procedure Note:: Colonoscopy Procedure Report: Colonoscopy with cold snare polypectomy and cold biopsies Endoscopist: Venkatesh Oliver II, MD Referring physician: BERONICA Arreaga, [address] [place] [address] , [place], [address] Date of Procedure: October 27, 2024 Equipment: Olympus 190 variable stiffness pediatric colonoscope Sedation: MAC sedation Indication: Mr. Lechuga is a 54-year-old gentleman who is here for initial screen ing colonoscopy. He reports no abdominal pain, weight loss, or change in his bowel habits. He does see an occasional spot of blood from internal hemorrhoids on the toilet tissue. He does state that his maternal grandmother had colon cancer in her 70s. Procedure: Prior to the procedure, a history and physical exam was performed, and patient's medications and allergies were reviewed. The risks, benefits and alternatives of the sedation and procedure were discussed with the patient. All questions were answered and informed consent was obtained. The patient was brought to the procedure room. Patient identification and proposed procedure were verified by the physician and the nurse. The patient was placed in a left lateral decubitus position and the scope was passed under direct vision. Throughout the procedure, the patient's blood pressure, pulse, and oxygen saturations were monitored continuously. The colonoscopy was accomplished without difficulty. The patient tolerated the procedure well. Findings: On digital rectal examination there was normal rectal tone. There were no external hemorrhoids. The prostate was 2+, smooth, soft, symmetric without nodules. The colonoscope was introduced through the anal canal to the rectum and advanced to the cecum. The ileocecal valve and appendiceal orifice were identified. The scope was advanced a short distance into the ileum which appeared grossly normal. The scope was then withdrawn into the colon. There was a single 4 mm polyp in the ascending colon removed via cold snare polypectomy. The remaining cecum, ascending, transverse, descending and sigmoid colon were grossly normal. There were no mucosal abnormalities identified. Within the rectum there was a superficial ulceration (7 mm) that was biopsied. Upon retrof lexion within the rectum there were grade 2 internal hemorrhoids. The preparation was excellent throughout with [place] Preparation Score of 9. The cecal time was 12 minutes. Impression: 1. Diminutive 4 mm ascending colon polyp 2. Superficial rectal ulcer 3. Grade 2 internal hemorrhoids Plan: I will follow-up the polyp histology and biopsies and recommend repeat surveillance colonoscopy again in 7 years if the polyp is adenomatous. I would encourage psyllium bulking fiber supplementation on a long-term daily maintenance basis.
[2024-10-27 12:09] VITALS: BP 93/47; PULSE 73; RESP 16; TEMP 36.4; O2SAT 96
[2024-10-27 12:19] VITALS: BP 93/51; PULSE 66; RESP 16; O2SAT 96
[2024-10-27 12:29] VITALS: BP 114/55; PULSE 79; RESP 16; O2SAT 94
[2024-10-27 12:39] VITALS: BP 123/61; PULSE 74; RESP 16; O2SAT 95
[2024-10-28 08:22] LABS: POC Glucose,Bedside 114 (70-110)
== END 2024-10-27 12:50 | disposition home or self-care (01) ==
PROVIDERS: PCP Nurse Practitioner Family; Visit Provider Internal Medicine Gastroenterology
PROC: 0DJD8ZZ Inspection of Lower Intestinal Tract, Via Natural or Artificial Opening Endoscopic (ICD-10-PCS; CPT 45378; principal; 2024-10-27 11:30)
DX: Z12.11 Encounter for screening for malignant neoplasm of colon (principal); D12.6 Benign neoplasm of colon, unspecified; K62.6 Ulcer of anus and rectum; K64.1 Second degree hemorrhoids; E11.9 Type 2 diabetes mellitus without complications; E78.5 Hyperlipidemia, unspecified; I10 Essential (primary) hypertension; Z80.0 Family history of malignant neoplasm of digestive organs; Z88.0 Allergy status to penicillin; Z88.2 Allergy status to sulfonamides; Z79.899 Other long term (current) drug therapy; Z79.82 Long term (current) use of aspirin
CPT/HCPCS: 45380; 45385; 82962; J2003; J2704; J7120